=== PATIENT | male | born 1975 | race Caucasian/White ===

== ENCOUNTER 2016-10-25 11:54 | Emergency (ER) | payer SELFPAY ==
[2016-10-25 12:25] VITALS: BP 131/84; PULSE 84; TEMP 97.7; BMI 25.0
[2016-10-25] MEDS ORDERED: CYCLOBENZAPRINE 10 MG TAB PO ONE (12:26)
[2016-10-25] MEDS ORDERED: KETOROLAC TROMETHAMINE 10 MG TAB PO ONE (12:26)
--- NOTE | 2016-10-25 12:26 | EDPRACDOC ---
- General Information Chief Complaint: Back Pain Stated Complaint: LOWER BACK PAIN NO INJURY Time Seen by Provider: 10/25/16 12:21 Home Medications: Home Medications Cyclobenzaprine HCl [Flexeril] 10 mg PO TID PRN #20 tablet 10/25/16 Hydrocodone Bit/Acetaminophen [Hydrocodon-Acetaminophen 5-325] 1 tab PO Q6 PRN # 20 tab 10/25/16 Prednisone [Deltasone, Orasone] 40 mg PO DAILY 5 Days 10/25/16 Allergies/Adverse Reactions: Allergies Allergy/AdvReac Type Severity Reaction Status Date / Time No Known Allergies Allergy Verified 10/25/16 12:28 - History of Present Illness Onset: 2 WEEKS HPI: PT COMPLAINS OF RIGHT LOWER BACK PAIN X 2 WEEKS, NO KNOWN INJURY, STATES PAIN IS WORSE WITH TWISTING AND BENDING, STATES DOES "BIRD" FOR LIVING, STATES PAIN IS SHARP AND STABBING, RADIATES DOWN RIGHT LEG, STATES HAS BEEN GOING TO THE [facility] WITHOUT RELIEF. PT DENIES BOWEL/BLADDER DYSFUNCTION Pain Location: Reports: Right, Lower, Lumbar Pain Radiates To: Reports: Foot Pain Caused By: Reports: Spontaneous Circumstances: Reports: Unknown Relevant History: Reports: None Pain Severity: Reports: Severe Pain Quality: Reports: Aching, Sharp, Stabbing Worsened By: Reports: Twisting, Walking Associated Signs and Symptoms: Denies: Abdominal Pain, Dysuria, Hematuria, Nausea, Vomiting ED Past Medical History - History Reviewed Yes Nurses notes reviewed and agree except as marked - Patient Medical History GI/ History: Reports: Kidney Stones Psychological History: Reports: Anxiety Systemic History: Denies: Cancer - Family Medical History Reports: Cardiac Disorders (GRANDFATHER) - Social Medical History Smoking Status: Heavy tobacco smoker (5 or more cigarettes/day or daily pipe/ cigar) EDM Review of Systems - Review of Systems Constitutional: negative: Chills, Fever Genitourinary: negative: Dysuria, Frequency Neurological: negative: Dizziness, Headache, Numbness, Weakness Musculoskeletal: Back Integumentary: No Symptoms Reported - Physical Exam Constitutional: Alert (Awake), No apparent distress Oriented to: Time, Person, Place Last recorded Vital Signs: Oxygen Pulse Oxygen Saturation O2 Device Oxygen Flow Rate Fraction of Inspired Oxygen ( FIO2) - HEENT Head: Normal ( normocephalic) - Integumentary Skin: Normal, Warm, Dry Lymphatics: Normal (no adenopathy) - Neurologic Memory Impaired: Normal Motor Function: Normal (Normal tone, Pulses 2+ No cyanosis or edema, FROM) Cranial Nerve: Normal (CN II-X11 intact sensation, strength 5/5) Cerebellar: Normal Mood Description: Normal Perception: Normal ED Back Exam - Neurologic Motor Deficit: None - Musculoskeletal Cervical: Normal Thoracic: Normal Lumbar: Tender Midline: Normal Paraspinous: Tender Straight Leg Raise: Negative Pelvis: Normal - Differential Diagnosis DJD, HNP, Musculoskeletal pain, Strain - Diagnostic Imaging L-S SPINE Image interpreted by: Radiologist LUMBAR SPINE - COMPLETE 4+ VIEW COMPARISON: [facility] 07/04/[address] 06/24/2012 FINDINGS: Vertebral body alignment and heights are normal. There is mild spondylosis of the lumbar spine. There is minimal disc space narrowing at the L4-5 level. Mild facet arthropathy is present over the mid to lower lumbar spine. There is no compression fracture or subluxation. Evidence of mild left-sided nephrolithiasis as seen on prior CT scan. IMPRESSION: Mild spondylosis of the lumbar spine with disc disease at the L4-5 level. Left-sided nephrolithiasis. Decision Time to Discharge: 13:35 - Departure Disposition: Home Condition: Stable Final Diagnosis: DDD (degenerative disc disease), lumbar, Acute sciatica Instructions: Sciatica (ED) Education/Counseling Given To: Patient Education/Counseling Given Regarding: Diagnosis, Treatment, Prognosis, Follow Up Referrals: Chandan Guardado MD [Staff Physician] - One Week Prescriptions: Cyclobenzaprine HCl [Flexeril] 10 mg PO TID PRN #20 tablet PRN Reason: Muscle Spasms Hydrocodone Bit/Acetaminophen [Hydrocodon-Acetaminophen 5-325] 1 tab PO Q6 PRN # 20 tab PRN Reason: Pain Prednisone [Deltasone, Orasone] 40 mg PO DAILY 5 Days Additional Instructions: Back Pain: apply warm compresses to affected area 20 mins at a time 4 - 5 times daily as needed for pain
--- NOTE | 2016-10-25 13:34 | DIRPT ---
CLINICAL DATA: Right lower back pain 2 weeks. No injury. EXAM: LUMBAR SPINE - COMPLETE 4+ VIEW COMPARISON: [facility] 07/04/[address] 06/24/2012 FINDINGS: Vertebral body alignment and heights are normal. There is mild spondylosis of the lumbar spine. There is minimal disc space narrowing at the L4-5 level. Mild facet arthropathy is present over the mid to lower lumbar spine. There is no compression fracture or subluxation. Evidence of mild left-sided nephrolithiasis as seen on prior CT scan. IMPRESSION: Mild spondylosis of the lumbar spine with disc disease at the L4-5 level. Left-sided nephrolithiasis. Electronically Signed By: Gregory Aguilera M.D. On: 10/25/2016 13:31
== END 2016-10-25 14:09 | disposition home or self-care (01) ==
LOC: EDMC 11:54
DX: M51.36 Other intervertebral disc degeneration, lumbar region (principal); M54.30 Sciatica, unspecified side
CPT/HCPCS: 72110; 99283; J3490